=== PATIENT | female | born 1980 | race African-American/Black ===

== ENCOUNTER 2019-10-26 15:17 | Emergency (ER) | payer SELFPAY ==
[2019-10-26 15:52] LABS: #Basophils 0.1 thou/uL (0.0-0.2); #Eosinphils 0.1 thou/uL (0.0-0.7); #Lymphocytes 2.7 thou/uL (1.20-3.40); #Monocytes 0.5 thou/uL (0.11-0.59); %Basophils 1.4 % (0.0-1.0); %Eosinophils 1.1 % (0.0-10.0); %Lymphocytes 28.8 % (21.0-51.0); %Monocytes 5.7 % (0.0-10.0); %Neutrophils 62.9 % (42.0-75.0); Hemoglobin 13.2 g/dL (12.0-16.0); Mean Corpuscular HGB CONC 32.6 g/dL (32.0-36.0); Mean Platelet Volume 6.3 fL (7.4-10.4); Platelet Count 378 thou/uL (130-400); RBC Distribution Width 12.2 % (11.5-14.5); Red Blood Cell (RBC) Count 4.55 mill/uL (4.20-5.40); White Blood Cell (WBC) Count 9.5 thou/uL (4.8-10.8)
[2019-10-26 16:12] LABS: Bilirubin Negative (Negative); Blood, Urine 2+ (Negative); Clarity Extra Turbid (Clear); Glucose, Urine (Dipstick) Normal (Negative); Leukocyte 500 Leu/uL (Negative); Nitrite Negative (Negative); Protein, Urine (Dipstick) 30 mg/dL (Neg-Trace); Urobilinogen Normal mg/dL (Less than 2); WBC/HPF Greater than 50 HPF (0-3)
[2019-10-26 16:13] LABS: Pregnancy Test - Urine (BHCG) Negative (Negative); Pregu Control Background? CLEAR/WHITE (CLR/WHITE); Pregu Control Bar Appear? YES (CONTROL BAR); Specific Gravity 1.018 (1.002-1.036)
[2019-10-26 16:14] LABS: ALT (SGPT) 12 U/L (8-55); AST (SGOT) 15 U/L (5-34); Alkaline Phosphatase 66 U/L (40-110); Anion Gap 9 mmol/L (10-20); BUN (Urea Nitrogen) 8 mg/dL (7.0-18.7); Bilirubin, Total 0.6 mg/dL (0.2-1.2); Calc. Creatinine Clearance 0 mL/min (70-130); Calcium 9.7 mg/dL (7.8-10.44); Carbon Dioxide 34 mmol/L (22-29); Chloride 103 mmol/L (98-107); Estimated GFR-MDRD Greater than 90; Glucose 104 mg/dL (70-105); Lipase 20 U/L (8-78); Potassium 3.3 mmol/L (3.5-5.1); Sodium 143 mmol/L (136-145)
[2019-10-26 16:19] LABS: Trichomonas/HPF 1+ HPF (None Seen)
[2019-10-26 16:20] LABS: Bacteria/HPF 1+ HPF (None Seen)
== END 2019-10-26 19:37 | disposition home or self-care (01) ==
LOC: ERS 15:17
DX: N39.0 Urinary tract infection, site not specified (principal); A59.9 Trichomoniasis, unspecified; F17.210 Nicotine dependence, cigarettes, uncomplicated
CPT/HCPCS: 36415; 80053; 81003; 81015; 81025; 83690; 85025; 87491; 87591; 99284

== ENCOUNTER 2020-08-05 22:15 | Day surgery (SDC) | payer OTHER ==
[2020-08-05 22:49] LABS: #Basophils 0.1 thou/uL (0.0-0.2); #Eosinphils 0.1 thou/uL (0.0-0.7); #Lymphocytes 3.3 thou/uL (1.20-3.40); #Monocytes 0.5 thou/uL (0.11-0.59); #Neutrophils 3.3 thou/uL (1.40-6.50); %Basophils 1.2 % (0.0-1.0); %Eosinophils 1.1 % (0.0-10.0); %Lymphocytes 45.8 % (21.0-51.0); %Monocytes 6.5 % (0.0-10.0); %Neutrophils 45.3 % (42.0-75.0); Hemoglobin 12.3 g/dL (12.0-16.0); Mean Corpuscular HGB CONC 34.3 g/dL (32.0-36.0); Mean Corpuscular Hemoglobin 30.2 pg (27.0-31.0); Mean Corpuscular Volume 88.1 fL (78.0-98.0); Mean Platelet Volume 5.9 fL (7.4-10.4); Platelet Count 303 thou/uL (130-400); RBC Distribution Width 12.3 % (11.5-14.5); Red Blood Cell (RBC) Count 4.06 mill/uL (4.20-5.40); White Blood Cell (WBC) Count 7.2 thou/uL (4.8-10.8)
[2020-08-05 23:05] LABS: Bilirubin Negative (Negative); Blood, Urine Negative (Negative); Clarity Turbid (Clear); Glucose, Urine (Dipstick) Normal (Negative); Ketone, Urine Negative (Negative); Leukocyte 500 Leu/uL (Negative); Nitrite Negative (Negative); Protein, Urine (Dipstick) Negative (Neg-Trace); RBC/HPF 0-3 HPF (0-3); Specific Gravity, Urine 1.016 (1.002-1.036); Squamous Epithelial 0-3 HPF (0-3); Urobilinogen Normal mg/dL (Less than 2); WBC/HPF 21-50 HPF (0-3)
[2020-08-05 23:06] LABS: Bacteria/HPF 1+ HPF (None Seen)
[2020-08-05 23:07] LABS: Pregnancy Test - Urine (BHCG) POSITIVE (Negative); Pregu Control Background? CLEAR/WHITE (CLR/WHITE); Pregu Control Bar Appear? YES (CONTROL BAR); Specific Gravity 1.016 (1.002-1.036)
[2020-08-05 23:09] LABS: ALT (SGPT) 19 U/L (8-55); AST (SGOT) 20 U/L (5-34); Albumin 3.6 g/dL (3.5-5.0); Alkaline Phosphatase 71 U/L (40-110); Anion Gap 13 mmol/L (10-20); BUN (Urea Nitrogen) 10 mg/dL (7.0-18.7); Bilirubin, Total 0.2 mg/dL (0.2-1.2); Calc. Creatinine Clearance 0 mL/min (70-130); Calcium 8.8 mg/dL (7.8-10.44); Carbon Dioxide 23 mmol/L (22-29); Chloride 105 mmol/L (98-107); Estimated GFR-MDRD Greater than 90; Globulin 3.1 g/dL (2.4-3.5); Glucose 96 mg/dL (70-105); Potassium 4.3 mmol/L (3.5-5.1); Protein, Total 6.7 g/dL (6.0-8.3); Sodium 137 mmol/L (136-145)
[2020-08-06] MEDS ORDERED: Bupivacaine PF 0.5% 30 ML VIAL ONE (01:12)
[2020-08-06] MEDS ORDERED: EPINEPHrine 1 MG/ML AMP ONE (01:12)
[2020-08-06] MEDS ORDERED: PHENYLEPHRINE-NS 100 MCG/ML 10 ML SYRINGE ONE ×2 (01:41→09:44)
[2020-08-06] MEDS ORDERED: Fentanyl 100 MCG/2 ML VIAL ONE ×2 (01:41→03:04)
--- NOTE | 2020-08-06 02:08 | HP ---
CHIEF COMPLAINT: Abdominal pain. HISTORY OF PRESENT ILLNESS: This is a 39-year-old G4, P1 at unknown gestation, who presented to the emergency department with lower abdominal cramping, mostly on the left side, and she reports that she started having some spotting today and is unsure how far along she is. She denies any other complaints today. REVIEW OF SYSTEMS: Negative for head, eyes, ears, nose, throat, cardiovascular, respiratory, GI, , neuropsych, musculoskeletal, skin, or constitutional symptoms other than mentioned above. PAST MEDICAL HISTORY: None. PAST SURGICAL HISTORY: x1. MEDICATIONS: None. ALLERGIES: NO KNOWN DRUG ALLERGIES. SOCIAL HISTORY: Positive for tobacco use, approximately one pack per day. Negative for alcohol or drug abuse. FAMILY HISTORY: Noncontributory. CAMPAIGN COORDINATOR HISTORY: One prior . No known history of STDs. PHYSICAL EXAMINATION: VITAL SIGNS: Afebrile, normal vital signs. GENERAL: Awake, alert, no acute distress. CHEST: Nonlabored. ABDOMEN: Soft, nontender to palpation. No guarding. No rebound. PELVIC: Deferred. IMAGING: Ultrasound reveals a left-sided ectopic with positive cardiac activity seen in the left fallopian tube, no intrauterine , small amount of free fluid in the pelvis. Official radiology read not back yet. LABORATORY DATA: Hemoglobin 12.3, hematocrit 35.8, hCG 14,922. ASSESSMENT: A 39-year-old para 1 with left-sided ectopic with positive cardiac activity in the fallopian tube and an HCG of 15,000. The patient was counseled and the decision was made to proceed to the operating room for left laparoscopic salpingectomy for ectopic . All risks, benefits, alternatives were discussed. Consents were obtained. All questions were answered. Job ID: [id number] [facility]
--- NOTE | 2020-08-06 03:29 | OP ---
DATE OF PROCEDURE: 08/06/2020 PREOPERATIVE DIAGNOSIS: Left-sided ectopic . POSTOPERATIVE DIAGNOSES: 1. Left-sided ectopic . 2. Small hemoperitoneum. PROCEDURE PERFORMED: Operative laparoscopy with left salpingectomy. ANESTHESIA: General endotracheal. COMPLICATIONS: None. ESTIMATED BLOOD LOSS: 20 mL. FINDINGS: Left-sided ectopic with early rupture and small amount of hemoperitoneum, clubbing of the right-sided fallopian tube, Fskv-Ueto-Mzlzov adhesions of the liver, otherwise normal-appearing uterus and ovaries. DESCRIPTION OF PROCEDURE: The patient was taken to the operating room where general anesthesia was obtained without difficulty. She was prepared and draped in normal sterile fashion in the dorsal lithotomy position in the [place] leg holders. A sponge stick was placed in the vagina. A 5 mm skin incision was made supraumbilically in the fold and a Veress needle was passed into the abdomen without difficulty. The abdomen was insufflated with CO2 gas. A 5 mm trocar was advanced into the abdomen where intraabdominal placement was confirmed with direct visualization. The pelvis was visualized with the above findings. A second 5 mm skin incision was made in the right lower quadrant and a 5 mm port was advanced under direct visualization. A 10 mm trocar was advanced in the left lower quadrant under direct visualization. The ectopic was grasped and removed with a LigaSure device with good hemostasis. It was removed using an endobag and sent to pathology. The right tube was noted to be clubbed. However, since I did not discuss removing the damaged tube with the patient prior to the procedure, I left it in place. The pelvis was irrigated and suctioned with good hemostasis again noted. The fascial incision was repaired with a [place] device. The right lower quadrant trocar was removed under direct visualization with good hemostasis and the supraumbilical port was removed. The skin was reapproximated with 4-0 Monocryl and injected with lidocaine. The sponge stick was removed from the vagina. The patient tolerated the procedure well. Sponge, lap, and needle counts were correct x2. The patient was taken to recovery room in stable condition. Job ID: [id number] [facility]
--- NOTE | 2020-08-06 08:36 | ULT ---
PRELIMINARY REPORT/[facility]/EMERGENCY AFTER HOURS PROCEDURE Receipt of this report by the clinical staff was confirmed with KELY BIRD MD by Cecilia Platt on Aug 06, 2020 01:12:00 DIRECTOR DIABETES. Addendum electronically signed by Marianne Platt on August 06, 2020 1:11:07 AM [employer]OR DIABETES EXAM: US Obstetrical, Complete <14 weeks CLINICAL HISTORY: HX: CRAMPING, VAG BLEEDING, +PREG. SEE NOTES ON LAST IMAGE. THAKS TECHNIQUE: Transvaginal and transabdominal imaging of the maternal pelvis and a <14 week gestation with image do cumentation. COMPARISON: None provided. FINDINGS: GESTATION: A left-sided ectopic is noted with a CRL of 6.2 mm corresponding to 6 weeks 3 days and demo nstrating a heartbeat of 113 bpm UTERUS: Unremarkable. No myometrial mass. Measures 9.8 x 4.2 x 6.1 cm CERVIX: Closed. Unremarkable. OVARIES: The RIGHT side measures 3.2 x 2.1 x 2.0 cm and the LEFT side measures 3.2 x 1.4 x 2.6 cm FREE FLUID: Mild free fluid. IMPRESSION: LEFT sided live ectopic of 6 weeks 3 days ELECTRONICALLY SIGNED BY: Paulino Ledezma MD Aug 06, 2020 1:05:56 AM DIRECTOR DIABETES This report is intended for review by the ordering physician only, in accordance of law. If you recei ve this report in error, please call [facility] at [phone]. FINAL REPORT Final report by Dr. Hines Emergency after-hours study ULTRASOUND PELVIC ULTRASOUND TRANSVAGINAL DOPPLER DUPLEX: DATE: 08/06/2020 12:47 AM HISTORY: 39-year-old female presents with vaginal bleeding and pelvic pain in first trimester of TECHNIQUE: Transabdominal transducer and endovaginal transducer used to visualize intrapelvic contents with rivas scale, color-flow, and spectral analysis. FINDINGS: There is a left adnexal ectopic . Embryonic pole crown-rump length 0.6 cm corresponding to 6 weeks 3 days gestational age. heart rate 113 bpm. Dilated fluid-filled tortuous tubular or cystic structures in right adnexa, probably represent hydros alpinx. No free fluid in the cul-de-sac. No intrauterine gestation. Agree with preliminary report by [facility]. IMPRESSION: 1) Live left adnexal ectopic gestation of 6 weeks 3 days gestational age. 2) Evidence for right hydrosalpinx. Transcribed Date/Time: 08/06/2020 8:42 AM
[2020-08-06] MEDS ORDERED: PROPOFOL 200 MG/20 ML VIAL ONE (09:44)
[2020-08-06] MEDS ORDERED: Glycopyrrolate 0.2 MG/ML 5 ML SYRINGE ONE (09:44)
[2020-08-06] MEDS ORDERED: Dexamethasone 20 MG/5 ML VIAL ONE (09:44)
[2020-08-06] MEDS ORDERED: Ketorolac Tromethamine 30 MG/ML VIAL ONE (09:44)
[2020-08-06] MEDS ORDERED: Lidocaine 1% PF 5 ML VIAL ONE (09:44)
[2020-08-06] MEDS ORDERED: EPHEDRINE 25 MG/5 ML SYRINGE ONE (09:44)
[2020-08-06] MEDS ORDERED: Ondansetron PF 4 MG/2 ML Vial ONE (09:44)
[2020-08-06] MEDS ORDERED: Rocuronium Bromide 10 MG/ML (10ML VIAL) ONE (09:44)
[2020-08-07 15:20] LABS: SARS-CoV-2 MS2 Positive; SARS-CoV-2 N Gene Negative; SARS-CoV-2 S Gene Negative; SARS-CoV-2 by NAA Not Detected (NotDetected); SARS-CoV-2 orf1ab Negative
[2020-08-07 21:08] LABS: Chlamydia by PCR Not Detected (NotDetected); GC by PCR Not Detected (NotDetected)
== END 2020-08-06 ==
LOC: ERS 22:15 → SDC/OP 08-06 01:53
PROVIDERS: ATTEND Obstetrics & Gynecology
PROC: 0UT64ZZ Resection of Left Fallopian Tube, Percutaneous Endoscopic Approach (ICD-10-PCS; principal; 2020-08-06)
PROC: 10T24ZZ Resection of Products of Conception, Ectopic, Percutaneous Endoscopic Approach (ICD-10-PCS; principal; 2020-08-06)
DX: O00.102 Left tubal pregnancy without intrauterine pregnancy (principal); O99.611 Diseases of the digestive system complicating pregnancy, first trimester; K66.1 Hemoperitoneum; K66.0 Peritoneal adhesions (postprocedural) (postinfection); O99.331 Smoking (tobacco) complicating pregnancy, first trimester; F17.210 Nicotine dependence, cigarettes, uncomplicated; O34.219 Maternal care for unspecified type scar from previous cesarean delivery; Z3A.01 Less than 8 weeks gestation of pregnancy
CPT/HCPCS: 36415; 51701; 76856; 80053; 81003; 81015; 81025; 84702; 85025; 86850; 86900; 86901; 87480; 87491; 87510; 87591; 87635; 87660; 88305; J0171; J1100; J1885; J2405; J2704; J3010; S0020; U0003

== ENCOUNTER 2022-04-16 19:26 | Emergency (ER) | payer OTHER ==
[~2022-04-16 19:26] MED LIST: Iopamidol-370 76% 500 ML 1 ML ONE
[2022-04-16 20:37] LABS: #Lymphocytes 1.6 thou/uL (1.20-3.40); #Monocytes 1.2 thou/uL (0.11-0.59); #Neutrophils 12.2 thou/uL (1.40-6.50); %Basophils 0.1 % (0.0-1.0); %Eosinophils 0.2 % (0.0-10.0); %Lymphocytes 10.7 % (21.0-51.0); %Monocytes 7.9 % (0.0-10.0); %Neutrophils 81.1 % (42.0-75.0); Hemoglobin 13.7 g/dL (12.0-16.0); Mean Corpuscular HGB CONC 32.1 g/dL (32.0-36.0); Mean Corpuscular Hemoglobin 30.7 pg (27.0-31.0); Mean Corpuscular Volume 95.6 fL (78.0-98.0); Mean Platelet Volume 6.5 fL (7.4-10.4); Platelet Count 415 thou/uL (130-400); Red Blood Cell (RBC) Count 4.47 mill/uL (4.20-5.40)
[2022-04-16 20:58] LABS: ALT (SGPT) 13 U/L (8-55); AST (SGOT) 23 U/L (5-34); Albumin 3.4 g/dL (3.5-5.0); Alkaline Phosphatase 81 U/L (40-110); Anion Gap 15 mmol/L (10-20); BUN (Urea Nitrogen) 7 mg/dL (7.0-18.7); Bilirubin, Total 0.8 mg/dL (0.2-1.2); Calc. Creatinine Clearance 0 mL/min (70-130); Calcium 9.2 mg/dL (7.8-10.44); Carbon Dioxide 25 mmol/L (22-29); Chloride 103 mmol/L (98-107); Estimated GFR 103; Globulin 4.1 g/dL (2.4-3.5); Glucose 99 mg/dL (70-105); Lipase 9 U/L (8-78); Potassium 3.7 mmol/L (3.5-5.1); Protein, Total 7.5 g/dL (6.0-8.3); Sodium 139 mmol/L (136-145)
[2022-04-16] MEDS ORDERED: Ondansetron PF 4 MG/2 ML Vial ONE (21:00)
[2022-04-16] MEDS ORDERED: Morphine 4 MG/ML VIAL ONE (21:00)
[2022-04-16 21:24] LABS: Bilirubin Negative (Negative); Blood, Urine Negative (Negative); Clarity Clear (Clear); Glucose, Urine (Dipstick) Normal (Negative); Ketone, Urine Negative (Negative); Leukocyte 500 Leu/uL (Negative); Nitrite Negative (Negative); Protein, Urine (Dipstick) 20 mg/dL (Neg-Trace); RBC/HPF 0-3 HPF (0-3); Specific Gravity, Urine 1.022 (1.002-1.036); Squamous Epithelial 0-3 HPF (0-3); Urobilinogen Normal mg/dL (Less than 2); pH, Urine 5.5 (5.0-9.0)
[2022-04-16 21:29] LABS: Pregnancy Test - Urine (BHCG) Negative (Negative); Pregu Control Background? CLEAR/WHITE (CLR/WHITE); Pregu Control Bar Appear? YES (CONTROL BAR); Specific Gravity 1.022 (1.002-1.036)
[2022-04-16 21:34] LABS: Bacteria/HPF Rare-Few HPF (None Seen)
[2022-04-16] MEDS ORDERED: cefTRIAXone\\ROCEPHIN 1 GM VIAL ONE (23:32)
[2022-04-17] MEDS ORDERED: metroNIDAZOLE 500 MG/100 ML BAG ONE (00:09)
[2022-04-17 18:07] LABS: Chlam.trachomatis by PCR,Urine Not Detected (NotDetected)
== END 2022-04-17 01:11 | disposition short-term general hospital (02) ==
LOC: ERS 19:26
DX: N70.93 Salpingitis and oophoritis, unspecified (principal); N73.9 Female pelvic inflammatory disease, unspecified; N70.11 Chronic salpingitis
CPT/HCPCS: 36415; 71045; 74177; 76856; 80053; 81003; 81015; 81025; 83605; 83690; 83880; 84484; 85025; 87040; 87086; 87491; 87591; 93005; 96365; 96375; J0696; J2270; J2405; Q9967

== ENCOUNTER 2023-09-13 14:20 | Emergency (ER) | payer OTHER | END 2023-09-13 16:32 | disposition left against medical advice (07) | LOC: ERS 14:20 | DX: Z53.21 Procedure and treatment not carried out due to patient leaving prior to being seen by health care provider (principal) ==